=== PATIENT | male | born 1955 | race Caucasian/White ===

== ENCOUNTER 2021-08-22 08:26 | Observation (INO) | payer MEDICARE ==
[~2021-08-22] VITALS: Ht 170.2 cm; Wt 100.2 kg
--- NOTE | ~2021-08-22 | OP ---
[facility] [address] [place] [address] OPERATIVE REPORT Name: UGO RIVERA Room: [address] Rashad#: [id number] Admission: 08/26/21 Attend Phys: Khalif Ramirez Discharge: Date of : 55 Report #: [id number] THIS REPORT FOR: cc: Ed Thornton MD, William MD Patterson, Jonathan D. MD ~ DATE OF SURGERY: 08/26/2021 PREOPERATIVE DIAGNOSES: Hiatal hernia with significant gastroesophageal reflux disease. POSTOPERATIVE DIAGNOSES: Hiatal hernia with significant gastroesophageal reflux disease. OPERATION: Laparoscopic repair of hiatal hernia without mesh implantation with partial fundoplication. SURGEON: Khalif Ramirez MD ANESTHESIA: General. ESTIMATED BLOOD LOSS: 50 mL. SPECIMENS: None. DESCRIPTION OF PROCEDURE: After informed consent was obtained, the patient was brought to the operating room and placed supine. SCDs were placed and working, preoperative antibiotics were administered, general anesthesia was induced. The abdomen was prepped and draped in the usual sterile fashion. A 1 mm incision was made in the left upper quadrant. A Veress needle was inserted. Pneumoperitoneum was established. I then placed a left periumbilical 10 mm trocar under direct vision. I then placed a 5 mm trocar in the left upper quadrant. Two right-sided 5 mm trocars were placed. The patient was placed in the reverse Trendelenburg position. A Ted retractor was inserted in the epigastrium. The liver was then retracted superiorly. This allowed visualization of the hiatus. The pars flaccida was incised and LigaSure dissection was carried out superiorly to the right mahogany. The phrenoesophageal ligament was incised with the LigaSure. He had a fairly large hiatal hernia. This was reduced anteriorly and posteriorly. The sac was fully reduced. I then placed a [place] drain around the distal esophagus. The short gastric vessels were taken down using the LigaSure device. This was carried distally and some of the gastroepiploic vessels were ligated using the LigaSure. This allowed [place] [address] OPERATIVE REPORT Name: UGO RIVERA Room: [address] Rashad#: [id number] Admission: 08/26/21 Attend Phys: Khalif Ramirez Discharge: Date of : 55 Report #: [id number] An OG tube was inserted prior to beginning the operation. I then performed a cruroplasty using 2-0 V-Loc suture. This reapproximated the crura nicely. This was done posteriorly, working anteriorly. After this had been done, the hiatal hernia was closed and the hiatus was not too loose or too tight around the distal esophagus. A Tommy fundoplication was then performed. The fundus of the stomach was then brought over to the right mahogany. It was sutured with two 2-0 Ethibond sutures, thereby completing the fundoplication. The liver was then placed back into its anatomic position. The ports were then removed under direct vision. The fascia at the 10 mm site was closed with a gqelxs-vj-upfhr 0 Vicryl. Skin was closed with 4-0 Monocryl. Incisions were dressed with Steri-Strips. COMPLICATIONS: None. DISPOSITION: The patient was taken to recovery in satisfactory condition. By: [id number] Ramirez MD /domingo
[2021-08-22] MEDS ORDERED: METFORMIN HCL500 M3 PO (12:45)
[2021-08-22] MEDS ORDERED: TRESIBA FL100 UNIT/1 SUBQ (12:47)
[2021-08-22] MEDS ORDERED: OZEMPIC1 MG/0.71 SUBQ (12:48)
[2021-08-22] MEDS ORDERED: NORVASC10 MG PO (12:49)
[2021-08-22] MEDS ORDERED: PAROXETINE HCL20 MG PO (12:50)
[2021-08-22] MEDS ORDERED: LOSARTAN-HCTZ1 EAC3 PO (12:50)
[2021-08-22] MEDS ORDERED: LIPITOR40 MG PO (12:52)
[2021-08-22] MEDS ORDERED: FARYDAK10 MG PO (12:52)
[2021-08-22] MEDS ORDERED: TOPROL XL100 MG PO (12:53)
[2021-08-22] MEDS ORDERED: PROTONIX40 M2 PO (12:54)
[2021-08-22] MEDS ORDERED: FISH OIL 1,0001 EAC9 PO (12:54)
[2021-08-22] MEDS ORDERED: MULTI VITAMIN1 EACH PO (12:55)
[2021-08-22] MEDS ORDERED: JOINT SUPPORT1 EACH PO (12:55)
[2021-08-22] MEDS ORDERED: SINGULAIR 10 MG10 MG PO (12:56)
[2021-08-26 11:40] LABS: HEMATOCRIT 48.5 % (42.0-52.0); HEMOGLOBIN 16.5 gm/dL (14.0-18.0); MCH 28.9 pg (26.0-34.0); MCV 85.1 fL (80.0-100.0); RBC 5.7 mil/uL (4.50-6.00); RDW-CV 14.6 % (10.5-14.5); WBC 6.8 thou/uL (4.0-11.0)
[2021-08-26 11:48] LABS: CALCIUM 9.3 mg/dL (8.5-10.1); CREATININE 0.9 mg/dL (0.6-1.3)
--- NOTE | 2021-08-26 12:29 | EKG ---
[place] [address] ELECTROCARDIOGRAM REPORT Name: UGO RIVERA Room: [address]R.#: [id number] Admission: 08/26/21 Attend Phys: Khalif John Discharge: Date of : 55 Date of Service: 08/26/21 1147 Report #: [id number] THIS REPORT FOR: //name// [facility] Test Date: 2021-08-26 Test Time: 11:47:29 Pat Name: UGO RIVERA Department: Room: [place] [address] Gender: M [employer] Specialist: DAVID : 1955 Requested By: Khalif Ramirez Order Number: [id number] Cheryl MD: Javier Molina Measurements Intervals Titus Rate: 59 P: 27 NE: 179 QRS: -30 QRSD: 93 T: 26 QT: 486 QTc: 482 Interpretive Statements Sinus rhythm Inferior infarct, old Consider anterior infarct Baseline wander in lead(s) V1 No previous ECG available for comparison Electronically Signed On 08-26-2021 12:28:58 ENDS DOWN CHECKER by Javire Molina [email or web address] <ELECTRONICALLY SIGNED> By: Javier Molina MD, [facility] 08/26/21 1228 1147 1147 Javier Molina MD, [facility] /EPI
[2021-08-26 20:15] VITALS: BP 149/89
[2021-08-26 23:49] VITALS: BP 163/98
[2021-08-27 04:19] VITALS: BP 158/88
[2021-08-27 09:00] VITALS: BP 139/85
[2021-08-27 12:00] VITALS: BP 134/84
[2021-08-27 12:17] VITALS: BP 158/88
[2021-08-27 14:07] VITALS: BP 158/88
== END 2021-08-27 12:52 | disposition home or self-care (01) ==
LOC: M.PRE 08:26 → M.TBA 08-26 11:05 → M.3W 08-26 11:05 → M.TBA 08-26 11:05 → M.3W 08-26 18:35
PROVIDERS: ADMIT Surgery; ATTEND Surgery
DX: K44.9 Diaphragmatic hernia without obstruction or gangrene (principal); Z20.822 Contact with and (suspected) exposure to COVID-19; K21.9 Gastro-esophageal reflux disease without esophagitis; I10 Essential (primary) hypertension; E11.9 Type 2 diabetes mellitus without complications; G47.33 Obstructive sleep apnea (adult) (pediatric); F41.9 Anxiety disorder, unspecified; F32.9 Major depressive disorder, single episode, unspecified; Z79.899 Other long term (current) drug therapy